=== PATIENT | female | born 1945 | race Caucasian/White ===

== ENCOUNTER → 2016-11-24 | Outpatient (CLI) | payer MEDICARE, BC ==
--- NOTE | 2016-11-24 15:06 | MAM ---
EXAM DESCRIPTION: MAMMO BREAST SCREENING BILATERAL CAD, images were reviewed with CAD technology, R2 computer-aided detection. CLINICAL HISTORY: [facility]. COMPARISON: 2012. FINDINGS: Routine views are obtained. Glandular tissue is near completely fatty involuted. No dominant mass, architectural distortion or clustered microcalcification period. IMPRESSION: Benign exam. BIRAD CATEGORY: 2 BENIGN RECOMMENDATIONS: FOLLOW-UP: Routine screening mammogram in one year. According to the [employer], yearly mammograms are recommended starting at age 40 and continuing as long as a woman is in good health. Any breast change noted on a breast self-exam should be reported promptly to the patient's healthcare provider. Breast MRI is recommended for women with an approximately 20-25% or greater lifetime risk of breast cancer, including women with a strong family history of breast or ovarian cancer and women who have been treated for Hodgkin's disease. Electronically signed by: Nataliia Garcia 11/24/2016 15:04
== END ==
LOC: MAMMO 10:44
PROVIDERS: ATTEND Obstetrics & Gynecology
DX: Z12.31 Encounter for screening mammogram for malignant neoplasm of breast (principal)
CPT/HCPCS: 77052; G0202

== ENCOUNTER → 2017-11-12 | Outpatient (CLI) | payer MEDICARE, BC ==
--- NOTE | 2017-11-13 08:33 | RAD ---
EXAM DESCRIPTION: Foot,Left 3 Views CLINICAL HISTORY: 72 years, Female, GOUT, R10.9 COMPARISON: None TECHNIQUE: AP, lateral, and oblique views of the left foot FINDINGS: The bones are osteopenic with advanced degenerative change of bone on bone appearance of the base of the great toe at the metatarsophalangeal joint. Periarticular erosions typical of gout are noted medially and laterally involving the first metatarsal head. No fracture or dislocation is seen. Significant plantar calcaneal spurring is noted. Severe degenerative changes elsewhere are not apparent. Mild hammertoe deformity of toes two through four are noted. IMPRESSION: Diffuse osteopenia with advanced degenerative changes and mild erosive changes at the base of the great toe at the metatarsophalangeal joint consistent with gouty arthropathy. Electronically signed by: Eddie Barrientos MD 11/13/2017 8:32 AM [facility]
== END | disposition home or self-care (01) ==
LOC: RAD 09:41
PROVIDERS: ATTEND Obstetrics & Gynecology
DX: M10.9 Gout, unspecified (principal)

== ENCOUNTER → 2017-12-28 | Outpatient (CLI) | payer MEDICARE, BC ==
--- NOTE | 2017-12-28 13:45 | MAM ---
Screening BILATERAL MAMMOGRAMS HISTORY: SCREENING COMPARISON: November 24, 2016, November 12, 2015 TECHNIQUE: Digital 2-D mammograms , and 3-D tomosynthesis,1 of both breasts were performed in CC and MLO orientations. Mammo CAD analysis also performed. FINDINGS: Scattered fibroglandular tissue identified in both breasts. Benign lymph nodes in left axilla. A benign 5 mm nodular density again seen near the left axillary tail. Benign microcalcifications scattered in both breasts. No obvious mass lesion or concerning microcalcifications detected in either breast. IMPRESSION: No mammographic evidence of malignancy in either breast. BI-RADS: 2, benign findings. Follow-up: Annual surveillance recommended Electronically signed by: Garry Charles MD 12/28/2017 1:44 PM RESEARCH GENETICIST
== END ==
LOC: MAMMO 12:43
PROVIDERS: ATTEND Obstetrics & Gynecology
DX: Z12.31 Encounter for screening mammogram for malignant neoplasm of breast (principal)

== ENCOUNTER 2019-01-31 05:47 | Day surgery (SDC) | payer MEDICARE, BC ==
[2019-01-31] MEDS ORDERED: MOXIFLOXACIN HCL (OPHTH) 1 DROP DROPS ONE (08:19)
[2019-01-31] MEDS ORDERED: TROP 1%/CYCLOPEN 1%/PHENYL 2% DROPS ONE (08:20)
[2019-01-31] MEDS ORDERED: PROPARACAINE 0.5% OPHTH SOL 15 ML BTTL ONE (08:20)
[2019-01-31] MEDS ORDERED: MIDAZOLAM INJ 2 MG/2 ML VIAL ONE (09:24)
[2019-01-31] MEDS ORDERED: PROPARACAINE 0.5% OPHTH SOL 15 ML BTTL RIGHT_EYE ONE (09:28)
[2019-01-31] MEDS ORDERED: LIDOCAINE 1% 2 ML VIAL INJ ONE ×2 (09:38→09:40)
[2019-01-31] MEDS ORDERED: TOBRAMYCIN SULF 0.3 % OPHT SOL 1 DROP RIGHT_EYE ONE ×2 (09:38→09:51)
[2019-01-31] MEDS ORDERED: DEXAMETHASONE 0.1% OPHTH SOL 1 DROP RIGHT_EYE ONE ×2 (09:38→09:51)
[2019-01-31] MEDS ORDERED: MOXIFLOXACIN HCL (OPHTH) 1 DROP DROPS RIGHT_EYE ONE ×2 (09:38→09:53)
[2019-01-31] MEDS ORDERED: BRIMONIDINE 0.2% OPHTH DROPS RIGHT_EYE ONE ×2 (09:39→09:51)
== END 2019-01-31 10:30 | disposition home health service (06) ==
LOC: AMB 05:47
PROVIDERS: ATTEND Ophthalmology
DX: H25.11 Age-related nuclear cataract, right eye (principal); I10 Essential (primary) hypertension; E11.36 Type 2 diabetes mellitus with diabetic cataract; E66.9 Obesity, unspecified; Z79.84 Long term (current) use of oral hypoglycemic drugs; Z79.899 Other long term (current) drug therapy
CPT/HCPCS: 00142; 36416; 66984; 82948; J2250

== ENCOUNTER 2019-02-14 06:03 | Day surgery (SDC) | payer MEDICARE, BC ==
[~2019-02-14 06:03] MED LIST: MOXIFLOXACIN HCL (OPHTH) 1 DROP DROPS ONE; PROPARACAINE 0.5% OPHTH SOL 15 ML BTTL ONE; TROP 1%/CYCLOPEN 1%/PHENYL 2% DROPS ONE
[2019-02-14] MEDS ORDERED: MIDAZOLAM INJ 2 MG/2 ML VIAL ONE ×2 (12:33→12:38)
[2019-02-14] MEDS ORDERED: PROPARACAINE 0.5% OPHTH SOL 15 ML BTTL LEFT_EYE ONE (12:35)
[2019-02-14] MEDS ORDERED: DEXAMETHASONE 0.1% OPHTH SOL 1 DROP LEFT_EYE ONE ×2 (12:44→12:57)
[2019-02-14] MEDS ORDERED: LIDOCAINE 1% 2 ML VIAL INJ ONE (12:44)
[2019-02-14] MEDS ORDERED: TOBRAMYCIN SULF 0.3 % OPHT SOL 1 DROP LEFT_EYE ONE ×2 (12:44→12:57)
[2019-02-14] MEDS ORDERED: MOXIFLOXACIN HCL (OPHTH) 1 DROP DROPS LEFT_EYE ONE ×2 (12:44→12:57)
[2019-02-14] MEDS ORDERED: BRIMONIDINE 0.2% OPHTH DROPS LEFT_EYE ONE ×2 (12:45→12:57)
== END 2019-02-14 13:33 | disposition home or self-care (01) ==
LOC: AMB 06:03
PROVIDERS: ATTEND Ophthalmology
DX: H25.12 Age-related nuclear cataract, left eye (principal); E11.36 Type 2 diabetes mellitus with diabetic cataract; I10 Essential (primary) hypertension; Z79.84 Long term (current) use of oral hypoglycemic drugs; Z79.01 Long term (current) use of anticoagulants; Z79.899 Other long term (current) drug therapy
CPT/HCPCS: 00142; 66984; 82948; J2250

== ENCOUNTER → 2019-04-13 | Outpatient (CLI) | payer MEDICARE, BC ==
--- NOTE | 2019-04-18 16:46 | MAM ---
EXAM DESCRIPTION: 3D Screening BILATERAL : Digital Mammography. CLINICAL HISTORY: 73 years Female SCREEN . No complaints and no personal history of breast cancer. Mother with ovarian cancer. Remote family history of breast cancer. Childbirth. Postmenopausal 20+ years. No HRT. Lifetime risk of developing breast cancer (Tyrer-Cuzick model)(%): 3.7. COMPARISON: Bilateral screening digital breast tomosynthesis 12/28/2017 TECHNIQUE: Bilateral CC and MLO projection full-field images, digital tomosynthesis mammographic technique. Bilateral digital 2-D full-field MLO images. CAD not available for tomosynthesis or 2-D images. FINDINGS: The breast parenchymal density pattern is: Almost entirely fatty. No skin thickening or nipple retraction. Bilateral solitary microcalcifications. Skin calcifications medial right breast. Stable focal mass density lateral left breast most likely a lymph node. No new focal, stellate mass or density, focal asymmetry , and no suspicious microcalcifications bilaterally. Stable mammograms compared to prior study. IMPRESSION: Benign exam. BIRAD CATEGORY: 2 BENIGN FINDINGS. RECOMMENDATIONS: FOLLOW UP: Routine digital bilateral mammographic screening, one year interval from March 2019. Written communication explaining the IMPRESSION and follow-up, will be mailed to the patient and referring health care provider. According to the [employer], yearly mammograms are recommended starting at age 40 and continuing as long as a woman is in good health. Any breast change noted on a breast self-exam should be reported promptly to the patient's healthcare provider. Breast MRI is recommended for women with an approximately 20-25% or greater lifetime risk of breast cancer, including women with a strong family history of breast or ovarian cancer and women who have been treated for Hodgkin's disease. A negative mammographic report should not delay tissue diagnosis in patients with significant clinical history or physical findings. Extremely dense breast tissue limits the sensitivity of digital mammography. Electronically signed by: Jerson Gates MD 04/18/2019 4:44 PM CDT
== END ==
LOC: MAMMO 10:30
PROVIDERS: ATTEND Obstetrics & Gynecology
DX: Z12.31 Encounter for screening mammogram for malignant neoplasm of breast (principal)

== ENCOUNTER → 2019-04-15 | Outpatient (CLI) | payer MEDICARE, BC | LOC: RAD 08:03 | PROVIDERS: ATTEND Orthopaedic Surgery | DX: M16.0 Bilateral primary osteoarthritis of hip (principal); M47.898 Other spondylosis, sacral and sacrococcygeal region; M25.562 Pain in left knee; Z96.652 Presence of left artificial knee joint ==

== ENCOUNTER → 2019-04-19 | Outpatient (CLI) | payer MEDICARE, BC ==
--- NOTE | 2019-04-19 14:28 | NM ---
EXAM DESCRIPTION: Bone Scan, 3Phase: Nuclear Medicine CLINICAL HISTORY: 73 years Female PAIN IN LEFT KNEE COMPARISON: Radiographs of the left knee 04/15/2019. TECHNIQUE: Patient injected with 26.8 mCi of technetium 99M MDP IV. Immediate flow gamma camera images were obtained of the bilateral knees from various planes. "Blood pool" images were then obtained of the bilateral knees from various planes. Delayed gamma camera images from various planes were obtained 3 hr after injection. FINDINGS: On the flow images, there is increased activity in the medial and lateral femoral condyles abutting the femoral component of the left total knee arthroplasty. Osteopenia associated with the arthroplasty components. Minimal activity also above the component in the distal femur. No flow activity in the patella tibia. Blood pool phase shows activity in the medial lateral aspect of the femoral component in the condyles and also medial distal thigh. Normal activity in the tibia fibula or patella. On delayed images, there is activity in the femoral condyles abutting the component. Also activity in the patella and in the medial lateral tibial plateaus. Activity also in the medial right tibial plateau. IMPRESSION: Abnormal triple phase radionuclide bone scan with increasing activity in all 3 phases in the medial and lateral left femoral condyles abutting the femoral component of the arthroplasty. This indicates either infection or loosening of the arthroplasty femoral component. Activity in the left patella, medial and lateral tibial plateaus, and right medial tibial plateau most likely related to arthrosis. Electronically signed by: Jerson Gates MD 04/19/2019 2:26 PM CDT
== END ==
LOC: NM 08:00
PROVIDERS: ATTEND Orthopaedic Surgery
DX: M25.562 Pain in left knee (principal)
CPT/HCPCS: 78315; A9503

== ENCOUNTER 2019-11-30 14:26 | Emergency (ER) | payer MEDICARE, BC ==
[2019-11-30] MEDS ORDERED: ACETAMINOPHEN W/COD #3 TAB 1 EA TAB PO ONE (15:10)
--- NOTE | 2019-11-30 15:14 | ED.PDOC ---
History of Present Illness - General Chief Complaint: General Stated Complaint: L chest wall discomfort Time Seen by Provider: 11/30/19 15:08 Additional Information: Patient is a 74-year-old female who presents to the ED with a chief complaint of left lateral chest wall pain. Patient indicates her pain has been present for a few days and waxes and wanes in intensity and was worse today so she decided to come to the emergency department. Patient describes the pain as a sharp pain, moderate in intensity. However, presently she says she has only very mild discomfort. Patient denies new cough but says she has an occasional dry cough. She denies nausea, vomiting, fever, chills. She denies history of coronary artery disease or any other cardiac issues and denies any intrinsic lung problems. Patient has no other medical concerns at this time. - History of Present Illness Allergies/Adverse Reactions: Allergies NO KNOWN ALLERGY Allergy (Verified 09/10/15 09:03) Home Medications: Ambulatory Orders Allopurinol 100 mg PO DAILY 02/03/15 Glipizide 5 mg PO BID 02/03/15 Levothyroxine Sodium 50 mcg PO DAILY 02/03/15 Metformin HCl [Metformin Hydrochloride] 2,500 mg PO BIDFD 02/03/15 Simvastatin 20 mg PO BEDTIME 02/03/15 Sitagliptin Phosphate [Januvia] 100 mg PO DAILYBK 02/03/15 HYDROcodone 5MG/APAP 325MG [[place] 5/325] 1 ea PO Q4H PRN #90 tab 09/13/15 Rivaroxaban [Xarelto] 10 mg PO QD #8 tab 09/15/15 Amlodipine Besylate-Benazepril [Lotrel 5-10 mg] 1 cap PO BEDTIME 02/14/19 Acetaminophen W/ Codeine [Tylenol W/ CODEINE #3] 1 ea PO Q6H PRN #20 11/30/19 Cyclobenzaprine HCl [Flexeril] 10 mg PO Q8H PRN #20 tab 11/30/19 Review of Systems - Review of Systems Constitutional: States: no symptoms reported. Denies: chills, fever EENTM: States: no symptoms reported Respiratory: Denies: orthopnea, short of breath, wheezing Cardiology: States: see HPI. Denies: palpitations, syncope Gastrointestinal/Abdominal: States: no symptoms reported. Denies: abdominal pain, nausea, vomiting Genitourinary: Denies: dysuria Musculoskeletal: States: no symptoms reported Skin: States: no symptoms reported. Denies: rash Neurological: States: no symptoms reported. Denies: headache, numbness Endocrine: States: no symptoms reported All other Systems: Reviewed and Negative Past Medical History (General) - Patient Medical History Hx Stroke: No Hx Congestive Heart Failure: No Hx Hypertension: Yes Hx Thyroid Disease: Yes Hx Diabetes: Yes Hx Gastroesophageal Reflux: No Hx MRSA: No Surgical History: other - Vaccination History Hx Influenza Vaccination: Yes - 07/2019 Hx Pneumococcal Vaccination: Yes - Social History Hx Tobacco Use: No Hx Alcohol Use: Yes - Occasional use Family Medical History - Family History Father Family History: Unknown Physical Exam - Physical Exam General Appearance: Alert, Comfortable, No apparent distress, Well Developed, Well Nourished Neck: full range of motion, supple Respiratory: lungs clear, normal breath sounds, no respiratory distress, no accessory muscle use, other - Focal tenderness to palpation left chest wall at approximately T-6 in the anterior axillary line. Cardiovascular/Chest: regular rate, rhythm, no edema, no gallop, no JVD, no murmur Gastrointestinal/Abdominal: normal bowel sounds, non tender, soft Back Exam: normal inspection Extremity: normal range of motion, non-tender, normal inspection Neurologic: diagrammer and seamer II-XII nml as tested, no motor/sensory deficits, alert, normal mood/affect, oriented x 3 Skin Exam: other - No herpetiform rash noted to back or chest wall Progress - Progress Progress: 11/30/19 15:19 Differential diagnosis includes but is not limited to muscle strain, contusion, shingles, ACS. 11/30/19 15:50: EKG: Normal sinus rhythm, rate of 74, left axis deviation, normal QRS, normal ST segments, normal T waves. Q waves inferiorly. Negative STEMI. EKG read by Artemio Haas MD. 11/30/19 17:23 Patient reassessed and is feeling well at this time and is essentially pain- free. Patient's EKG is non-acute, her troponin is normal, and her chest x-ray is clear. Patient tells me she has no history of heart disease but she does have Q waves inferiorly suggesting possible old infarction I discussed with patient and her that she should have her PCP refer her to a forming department supervisor for outpatient evaluation. Patient's d-dimer was elevated and a CTA of patient's chest was done (reduced contrast protocol) which showed no filling defects or other pathology. Patient's chest pain is far lateral and clearly reproducible consistent with chest wall pain. Will discharge with analgesics and patient to rest and follow-up with her PCP. Strict return to the ED instructions discussed with patient including worsening chest pain, shortness of breath and fever. Vital signs stable, patient is NAD and looks clinically well and I believe is safe for discharge with outpatient follow-up. Follow-up instructions, discharge instructions and return to ED precautions discussed with patient. Patient voices understanding and willingness to comply with instructions. All laboratory and radiographic results have been discussed with the patient, and all questions answered. Patient is happy with plan. 11/30/19 17:38 - Results/Orders Results/Orders: 11/30/19 15:09 IV:Start .ONCE EKG Assessment ONCE Laboratory Results - last 24 hr 11/30/19 11/30/19 11/30/19 15:35 15:35 15:35 WBC 7.6 RBC 4.68 Hgb 13.8 Hct 42.1 MCV 89.9 MCH 29.5 MCHC 32.8 L RDW 17.3 H Plt Count 305 MPV 8.1 Absolute Neuts (auto) 5.50 Absolute Lymphs (auto) 1.20 Absolute Monos (auto) 0.30 Absolute Eos (auto) 0.40 Absolute Basos (auto) 0.10 Neutrophils % 72.5 Lymphocytes % 16.5 L Monocytes % 4.5 Eosinophils % 5.6 H Basophils % 0.9 D-Dimer, Quantitative 516 H Sodium 141 Potassium 4.0 Chloride 111 Carbon Dioxide 20 L Anion Gap 14.0 BUN 30 H Creatinine 1.35 H BUN/Creatinine Ratio 22.2 H Random Glucose 169 H Serum Osmolality 291.4 Calcium 10.1 Total Bilirubin 0.4 AST 53 H ALT 57 Alkaline Phosphatase 87 Troponin I Serum Total Protein 7.7 Albumin 4.2 Globulin 3.5 Albumin/Globulin Ratio 1.2 11/30/19 15:35 WBC RBC Hgb Hct MCV MCH MCHC RDW Plt Count MPV Absolute Neuts (auto) Absolute Lymphs (auto) Absolute Monos (auto) Absolute Eos (auto) Absolute Basos (auto) Neutrophils % Lymphocytes % Monocytes % Eosinophils % Basophils % D-Dimer, Quantitative Sodium Potassium Chloride Carbon Dioxide Anion Gap BUN Creatinine BUN/Creatinine Ratio Random Glucose Serum Osmolality Calcium Total Bilirubin AST ALT Alkaline Phosphatase Troponin I < 0.02 Serum Total Protein Albumin Globulin Albumin/Globulin Ratio Departure - Departure Clinical Impression: Chest wall pain Time of Disposition: 17:29 Disposition: Discharge to Home or Self Care Condition: Good Departure Forms: ED Discharge - Pt. Copy, Patient Portal Self Enrollment Instructions: Chest Pain, Chest Pain That Is Not Caused by the Heart (DC) Referrals: Nelson Waite MD [Primary Care Provider] - 1-5 Days Prescriptions: Acetaminophen W/ Codeine [Tylenol W/ CODEINE #3] 1 ea PO Q6H PRN #20 PRN Reason: Pain Cyclobenzaprine HCl [Flexeril] 10 mg PO Q8H PRN #20 tab PRN Reason: Pain Home Medications: Ambulatory Orders Allopurinol 100 mg PO DAILY 02/03/15 Glipizide 5 mg PO BID 02/03/15 Levothyroxine Sodium 50 mcg PO DAILY 02/03/15 Metformin HCl [Metformin Hydrochloride] 2,500 mg PO BIDFD 02/03/15 Simvastatin 20 mg PO BEDTIME 02/03/15 Sitagliptin Phosphate [Januvia] 100 mg PO DAILYBK 02/03/15 HYDROcodone 5MG/APAP 325MG [[place] 5/325] 1 ea PO Q4H PRN #90 tab 09/13/15 Rivaroxaban [Xarelto] 10 mg PO QD #8 tab 09/15/15 Amlodipine Besylate-Benazepril [Lotrel 5-10 mg] 1 cap PO BEDTIME 02/14/19 Acetaminophen W/ Codeine [Tylenol W/ CODEINE #3] 1 ea PO Q6H PRN #20 11/30/19 Cyclobenzaprine HCl [Flexeril] 10 mg PO Q8H PRN #20 tab 11/30/19
--- NOTE | 2019-11-30 15:35 | RAD ---
EXAM DESCRIPTION: Chest,2 Views CLINICAL HISTORY: left chest pain COMPARISON: Previous study September 03, 2015 TECHNIQUE: PA/lateral FINDINGS: Right hemidiaphragm is elevated. Calcified granuloma in the left lower lobe. Heart size is normal with normal pulmonary vascularity. No pleural effusion or pneumothorax. Lungs are clear with no consolidating infiltrate. Lateral view shows intact sternum and T-spine. Tubing is seen in the stomach region consistent laparoscopically placed gastric band. IMPRESSION: No acute process is identified in the chest. Electronically signed by: Rik Ewing MD 11/30/2019 3:34 PM [facility]
[2019-11-30] MEDS ORDERED: SODIUM CHLORIDE 0.9% 1000ML 1,000 ML IVS ONE (16:24)
--- NOTE | 2019-11-30 17:15 | CT ---
EXAM DESCRIPTION: CTA Chest CLINICAL HISTORY: 74 years, Female, SOB, elevated DD COMPARISON: Chest radiograph same day TECHNIQUE: CT pulmonary angiography is performed with thin-section multi detector technique during rapid bolus administration of IV contrast media. Multiplanar reformatted images are reviewed along with source images and maximum intensity projection three dimensional images which were created on a separate dedicated workstation and are stored in the patient's medical record. FINDINGS: No evidence of filling defect within the main, right or left, or segmental pulmonary artery branches. Mild motion artifact associated with the left lower lobe subsegmental pulmonary arterial branches, limiting evaluation. The pulmonary arteries are normal in caliber. Limited evaluation of the thoracic aorta is within normal limits without gross evidence of aneurysm or dissection. 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 Bibasilar dependent atelectasis. Left lung base calcified granuloma. No focal consolidation, pneumothorax, or pleural effusion. The trachea and proximal bronchi are patent. No mediastinal or hilar lymphadenopathy. The heart is normal in size without pericardial effusion. Multilevel degenerative changes of the thoracic spine. Diffuse osteopenia.. The partially imaged abdomen demonstrate partially imaged nodular thickening of the bilateral adrenal glands. Changes of gastric banding are noted. IMPRESSION: 1. No evidence of acute or chronic pulmonary embolism. 2. 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 3. Diffuse osteopenia. This exam was performed according to our departmental dose-optimization program, which includes automated exposure control, adjustment of the mA and/or kV according to patient size and/or use of iterative reconstruction technique. Electronically signed by: Glen Montalvo DO 11/30/2019 5:13 PM VISCOSE DEPARTMENT WORKER
[2019-11-30 18:59] VITALS: BP 134/76; TEMP 97; O2SAT 97
== END 2019-11-30 17:45 | disposition home or self-care (01) ==
LOC: ER 14:26
DX: R07.89 Other chest pain (principal); I10 Essential (primary) hypertension; E07.9 Disorder of thyroid, unspecified; E11.9 Type 2 diabetes mellitus without complications; Z79.84 Long term (current) use of oral hypoglycemic drugs; Z79.899 Other long term (current) drug therapy
CPT/HCPCS: 71046; 71275; 80053; 84484; 85025; 85379; 93005; J7030

== ENCOUNTER → 2020-05-30 | Outpatient (CLI) | payer MEDICARE, BC ==
--- NOTE | 2020-06-01 17:48 | MAM ---
EXAM DESCRIPTION: 3D Screening BILATERAL : Digital Mammography. CLINICAL HISTORY: 74 years Female ANNUAL SCREENING . No complaints. Mother with ovarian cancer. Remote family history of breast cancer. Menarche age 11. Childbirth age 21. Menopause age 51. No HRT. Lifetime risk of developing breast cancer (Tyrer-Cuzick model)(%): 3.4. COMPARISON: Bilateral screening digital breast tomosynthesis March 2019 and December 2017. TECHNIQUE: Bilateral CC and MLO projection full-field images, digital tomosynthesis mammographic technique. Bilateral digital 2-D full-field MLO images. and CC images. CAD available for 2-D images. FINDINGS: The breast parenchymal density pattern is: Scattered areas of fibroglandular density. No skin thickening or nipple retraction. Solitary microcalcifications. Intramammary lymph nodes. Left axillary lymph nodes. No new focal, stellate mass or density, focal asymmetry , and no suspicious microcalcifications bilaterally. Stable mammograms compared to prior study. IMPRESSION: Benign exam. BIRAD CATEGORY: 2 BENIGN FINDINGS. RECOMMENDATIONS: FOLLOW UP: Routine digital bilateral mammographic screening, one year interval from May 2020. Written communication explaining the IMPRESSION and follow-up, will be mailed to the patient and referring health care provider. According to the [employer], yearly mammograms are recommended starting at age 40 and continuing as long as a woman is in good health. Any breast change noted on a breast self-exam should be reported promptly to the patient's healthcare provider. Breast MRI is recommended for women with an approximately 20-25% or greater lifetime risk of breast cancer, including women with a strong family history of breast or ovarian cancer and women who have been treated for Hodgkin's disease. A negative mammographic report should not delay tissue diagnosis in patients with significant clinical history or physical findings. Extremely dense breast tissue limits the sensitivity of digital mammography. Electronically signed by: Jerson Gates MD 06/01/2020 5:46 PM CDT
== END ==
LOC: MAMMO 08:20
PROVIDERS: ATTEND Obstetrics & Gynecology
DX: Z12.31 Encounter for screening mammogram for malignant neoplasm of breast (principal)